=== PATIENT | female | born 1930 | race Caucasian/White ===

== ENCOUNTER → 2018-05-06 | Outpatient (CLI) | payer OTHER, MEDICARE ==
[~2018-05-06] VITALS: Ht 160 cm; Wt 65.9 kg
[~2018-05-06] MED LIST: ALENDRONATE; ASPIRIN; ASPIRIN EC81 M1; CALCIUM 600 +1 EAC1 PO; CALTRATE-600 W1 EACH; FISHOIL; GABAPENTIN 100100 MG PO; HYDROCHLOROTH12.5 M1 PO; HYDROCODONE-AP1 EAC6 PO; K-DUR10 ME1; KLOR-CON 10 ER10 MEQ; LISINOPRIL40 MG; LYRICA 50 MG50 MG PO; MAGNESIUM OXID400 MG PO; MEGA RED; MOBIC7.5 MG PO; NORCO 5-325 TA1 EACH PO; NORVASC 5 MG TAB5 MG; PREMARIN0.3 MG; TRAMADOL 50 MG50 MG PO; TRAMADOL-ACETA1 EACH; TRAMADOL-ACETA1 EACH PO; TRIAMTERENE-HC1 EAC1; TURMERIC500 M2 PO; VALIUM5 MG PO; VITAMIN D1000 UNI1; VITAMIN D22000 UNIT; [UNRECOGNIZED DRUG - OTHER]
--- NOTE | ~2018-05-06 | HPC ---
[facility] [address] [place] [address] PAIN MANAGEMENT CONSULTATION Name: SUHA CONTI Room #: REG EARL Null.#: [id number] Admission: 05/06/18 ������������������ Attend Phys: Silvio Magaña MD Discharge: ������������������ Date of : 31 Report #: [id number] THIS REPORT FOR: //name// CC: Panda Magaña DATE OF SERVICE: 05/06/2018 REASON FOR VISIT: Followup visit for now chronic left anterior thigh pain. HISTORY OF PRESENT ILLNESS: I last saw my friend, the patient, for this condition in October. 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 This has been treated at the Pain Clinic at and she has had epidural injections, even a trial of spinal cord stimulation without success. She was treated fairly successfully with Lyrica for neuropathic pain; however, the cost was prohibitive. I find in October of last year that we truly have an unbalanced health care system that would approve and pay for a spinal cord stimulator and DRG stimulation that costs 10,000 of dollars but would not pay for the successful use of a medication such as Lyrica. It still leaves me scratching my head on that. She has retried gabapentin and other anti-seizure type medications with limited success. She uses tramadol and Meloxicam as an alternative yet her pain score with these medications can be as high as a 7/10. Pain once again is consistent with a femoral distribution from her hip radiating through the anterior thigh to her knee but no further. PQRS review shows a pleasant female with a history of diffuse osteoarthritis including replacement of left hip. She is a fall risk, but has not fallen in the last 3 months. She is on no blood thinners. She is under treatment for hypertension by Dr. Maynard, taking hydrochlorothiazide. She is also on amlodipine. All medications reviewed and reconciled and are noted on the electronic medical record. She is not on an opioid medication, has not signed an opioid agreement. She is at low risk by the ORT and if she desires, she is to use these medications. She does not smoke, occasionally enjoys an alcoholic beverage. PHYSICAL EXAMINATION: VITAL SIGNS: Blood pressure is 117/73, heart rate 95 and respirations 16. She has BMI of 25.7. MUSCULOSKELETAL: She moves from sitting to standing position. Her gait is antalgic. She has good range of motion of the hip. She has discomfort and tenderness throughout the femoral nerve distribution. There is no allodynia. She has good strength below the knee with no weakness in plantar or dorsiflexion. Deep tendon reflexes are bilaterally trace at knees and ankles. [address] [address] PAIN MANAGEMENT CONSULTATION Name: SUHA CONTI Asher Room #: REG EARL Cole#: [id number] Admission: 05/06/18 ������������������ Attend Phys: Silvio Magaña MD Discharge: ������������������ Date of : 31 Report #: [id number] IMPRESSION: 1. Femoral neuropathy. 2. Chronic back pain with radiculopathy. 3. Hypertension. RECOMMENDATIONS: 1. We may see if we can pursue help from the drug companies in providing her with Lyrica at a lower cost. My opinion as noted above. 2. Cortisone injection of the area surrounding the femoral nerve. I would not use local anesthetic due to the risk of weakness. 3. Follow up as needed. I also allow the patient to ride a stationary bike if she can do this carefully with supervision. PROCEDURE: Femoral nerve block. Skin was anesthetized with a 1% lidocaine and a 22-gauge Tuohy epidural needle utilized for its soft and rounded tip, was advanced just lateral to the femoral artery. After negative aspiration, I gently injected 40 mg of triamcinolone mixed with 3 mL of normal saline to enhance spread along the nerve root. A slight paresthesia was identified prior to injection. There was no resistance to injection. She tolerated the procedure well and was observed for short time and discharged. Followup visit planned by phone. ��������������������������������������������� ���������������������������������������� By: ��������������������������������������������� [id number] Silvio Magaña MD /nt
[2018-05-06 10:52] VITALS: BP 117/73
--- NOTE | 2018-05-06 11:05 | NUR ---
Pain Clinic Assessment: 1. History of Osteoarthritis: History of Rheumatoid Arthritis: 2. Height: 5 ft. 3 in. 160.0 cm. Weight: 145.2 lb. oz. 65.862 kg. Patient's BMI: 25.7 3. Vital Signs: BP: 117/73 Pulse: 95 Resp: 16 Temp: 02 Sat: 95 ECG Mon: 4. Pain Intensity: 0-7AVG 5. Fall Risk: Dizziness: N Needs help standing or walking: Y Fallen in the last 3 months: N Fall risk comments: 6. Patient on Blood Thinner: None 7. History of Hypertension: Y 8. Opioid Therapy greater than 6 weeks: N Opiate Contract Signed: 9. Risk Assessment Tool Provided: LOW 10. Functional Assessment Tool: 11. Recreational Drug Use: Never Drug Type: Tobacco Use: Former Smoker Tobacco Type: Amount or Packs/day: How Many Years: Alcohol Use: Yes Frequency: Quant:
== END | disposition home or self-care (01) ==
LOC: PAIN 02-25 08:00
DX: G57.22 Lesion of femoral nerve, left lower limb (principal); G89.29 Other chronic pain; I10 Essential (primary) hypertension; Z96.642 Presence of left artificial hip joint; Z87.891 Personal history of nicotine dependence; Z98.890 Other specified postprocedural states; Z79.899 Other long term (current) drug therapy

== ENCOUNTER → 2018-06-03 | Outpatient (CLI) | payer OTHER, MEDICARE ==
[~2018-06-03] VITALS: Ht 162.6 cm; Wt 62.1 kg
[2018-06-03 10:11] VITALS: BP 122/81
== END ==
LOC: PAIN 06:57
DX: M17.12 Unilateral primary osteoarthritis, left knee (principal)

== ENCOUNTER → 2018-07-26 | Outpatient (CLI) | payer OTHER, MEDICARE ==
[~2018-07-26] VITALS: Ht 162.6 cm; Wt 65.0 kg
--- NOTE | ~2018-07-26 | HPC ---
[facility] [address] [address] PAIN MANAGEMENT CONSULTATION Name: SUHA CONTI Room #: REG EARL MLubna.#: [id number] Admission: 07/26/18 ������������������ Attend Phys: Silvio Magaña MD Discharge: ������������������ Date of : 31 Report #: [id number] THIS REPORT FOR: //name// CC: LEO Magaña DATE OF SERVICE: 07/26/2018 Followup visit for chronic left groin pain, low back pain and bilateral osteoarthritis. My friend, the patient, is here today reporting that she is doing fairly well. She is grateful for the great pain relief that she got with the injection in the left femoral region following her stent placement. That continues to do well and is holding now about 2 months out from the injection. She has severe pain in the knees and injections previously were not helpful. We discussed strategies for managing her knee pain. Her followup visit was about 10-15 minutes today as we discussed long-term strategies to manage osteoarthritis. Followup visit is planned as needed. ��������������������������������������������� ���������������������������������������� By: ��������������������������������������������� 1737 [id number] Silvio Magaña MD /nt
[2018-07-26 13:01] VITALS: BP 134/78
--- NOTE | 2018-07-26 13:19 | NUR ---
Pain Clinic Assessment: 1. History of Osteoarthritis: B/L HANDS B/L SHOULDERS B/L KNEES RIGHT ANKLE History of Rheumatoid Arthritis: NONE 2. Height: 5 ft. 4 in. 162.6 cm. Weight: 143.2 lb. oz. 64.955 kg. Patient's BMI: 24.6 3. Vital Signs: BP: 134/78 Pulse: 84 Resp: 16 Temp: 02 Sat: 100 ECG Mon: 4. Pain Intensity: 0 5. Fall Risk: Dizziness: N Needs help standing or walking: Y Fallen in the last 3 months: N Fall risk comments: 6. Patient on Blood Thinner: None 7. History of Hypertension: Y 8. Opioid Therapy greater than 6 weeks: N Opiate Contract Signed: 9. Risk Assessment Tool Provided: LOW 10. Functional Assessment Tool: 11. Recreational Drug Use: Never Drug Type: Tobacco Use: Former Smoker Tobacco Type: Amount or Packs/day: How Many Years: Alcohol Use: Yes Frequency: Weekly Quant: 2-3
== END ==
LOC: PAIN 07-01 06:53
DX: G89.29 Other chronic pain (principal); M54.5 Low back pain; M17.0 Bilateral primary osteoarthritis of knee; R10.9 Unspecified abdominal pain

== ENCOUNTER → 2018-08-30 | Outpatient (CLI) | payer OTHER, MEDICARE ==
[~2018-08-30] VITALS: Ht 160 cm; Wt 64.9 kg
[2018-08-30 14:01] VITALS: BP 127/74
--- NOTE | 2018-08-30 14:08 | NUR ---
Pain Clinic Assessment: 1. History of Osteoarthritis: B/L HANDS B/L SHOULDERS B/L KNEES RIGHT ANKLE History of Rheumatoid Arthritis: NONE 2. Height: 5 ft. 3 in. 160.0 cm. Weight: 143.0 lb. oz. 64.864 kg. Patient's BMI: 25.3 3. Vital Signs: BP: 127/74 Pulse: 85 Resp: 16 Temp: 02 Sat: 96 ECG Mon: 4. Pain Intensity: 6 5. Fall Risk: Dizziness: N Needs help standing or walking: N Fallen in the last 3 months: N Fall risk comments: 6. Patient on Blood Thinner: None 7. History of Hypertension: Y 8. Opioid Therapy greater than 6 weeks: N Opiate Contract Signed: 9. Risk Assessment Tool Provided: RAY 10. Functional Assessment Tool: 11. Recreational Drug Use: Never Drug Type: Tobacco Use: Former Smoker Tobacco Type: Amount or Packs/day: How Many Years: Alcohol Use: Yes Frequency: Quant:
--- NOTE | 2018-09-07 17:25 | HPC ---
[facility] [address] [address] PAIN MANAGEMENT CONSULTATION Name: SUHA CONTI Room #: REG EARL MLubna.#: [id number] Admission: 08/30/18 ������������������ Attend Phys: Silvio Magaña MD Discharge: ������������������ Date of : 31 Report #: [id number] THIS REPORT FOR: //name// CC: LEO Magaña DATE OF SERVICE: 08/30/2018 Followup visit for femoral neuropathy. The patient was seen in the pain clinic in March and I performed a cortisone injection with saline around the femoral nerve. This was extremely helpful. She returns to the pain clinic today for repeat injection. Last injection was performed blindly. I told her today that I would perform the injection using fluoroscopic guidance, so I could see position of the dye in relationship to the femoral artery, looking also for pulsation to suggest proximity on the lateral aspect. She complains today of pain once again in the anterior thigh following the femoral nerve distribution. PQRS REVIEW: The patient is a pleasant 88-year-old. 1. Diffuse history of osteoarthritis involving hands, shoulders, knees and ankles. 2. 5 feet 3 inches, 143 pounds, 25.3 BMI. 3. Vital Signs: Blood pressure 127/74, heart rate 85, respirations 16, O2 sat 96. 4. Pain intensity 6/10. 5. She has not fallen in the last 3 months and is not considered a fall risk. 6. She is on no blood thinners. 7. She is treated for hypertension. All medications were reviewed and reconciled. She currently is taking lisinopril in addition to her pain medications, gabapentin, tramadol, meloxicam and aspirin. She is not on opioid agreement. She is considered at low risk for addiction at any rate and her functional assessment tool is 3/70. She denies use of tobacco, but enjoys alcohol in a social setting. Examination of the lower extremity reveals pain and tenderness radiating into the anterior thigh, in the femoral nerve distribution. IMPRESSION: Femoral neuropathy. RECOMMENDATIONS: Femoral nerve block. I will do this under fluoroscopic [facility] [address] [place] [address] PAIN MANAGEMENT CONSULTATION Name: SUHA CONTI Room #: REG EARL Cole#: [id number] Admission: 08/30/18 ������������������ Attend Phys: Silvio Magaña MD Discharge: ������������������ Date of : 31 Report #: [id number] guidance today. After informed consent, she was taken to the fluoroscopic suite. She was placed prone. Skin prepped with ChloraPrep. Skin was anesthetized just lateral to the left femoral artery. A 22-gauge Tuohy epidural needle was advanced to an area of slight paresthesia. This quickly abated. After negative aspiration, I injected 0.5 mL of Omnipaque. Spread of dye was seen lateral to the artery with some slight pulsation. This was then followed by 3 mL of 0.9% saline mixed with 40 mg of triamcinolone. She tolerated the procedure well. She was taken to recovery room and was observed for a short time before discharge. There were no complications. Followup visit planned as needed. ��������������������������������������������� <ELECTRONICALLY SIGNED> ���������������������������������������� By: Silvio Magaña MD ��������������������������������������������� 09/07/18 1725 1602 52 Silvio Magaña MD /nt
== END | disposition home or self-care (01) ==
LOC: PAIN 06:54
DX: G57.22 Lesion of femoral nerve, left lower limb (principal); G89.29 Other chronic pain; M19.90 Unspecified osteoarthritis, unspecified site; Z79.899 Other long term (current) drug therapy; Z79.82 Long term (current) use of aspirin; Z98.890 Other specified postprocedural states; Z87.891 Personal history of nicotine dependence; Z88.0 Allergy status to penicillin; Z88.8 Allergy status to other drugs, medicaments and biological substances

== ENCOUNTER → 2018-10-14 | Outpatient (CLI) | payer OTHER, MEDICARE ==
[~2018-10-14] VITALS: Ht 162.6 cm; Wt 63.5 kg
[2018-10-14 15:04] VITALS: BP 122/70
--- NOTE | 2018-10-14 15:08 | NUR ---
Pain Clinic Assessment: 1. History of Osteoarthritis: B/L HANDS B/L SHOULDERS B/L KNEES RIGHT ANKLE History of Rheumatoid Arthritis: NONE 2. Height: 5 ft. 4 in. 162.6 cm. Weight: 140.0 lb. oz. 63.504 kg. Patient's BMI: 24.0 3. Vital Signs: BP: 122/70 Pulse: 82 Resp: 16 Temp: 02 Sat: 97 ECG Mon: 4. Pain Intensity: 8 5. Fall Risk: Dizziness: N Needs help standing or walking: N Fallen in the last 3 months: N Fall risk comments: 6. Patient on Blood Thinner: None 7. History of Hypertension: Y 8. Opioid Therapy greater than 6 weeks: N Opiate Contract Signed: 9. Risk Assessment Tool Provided: RAY 10. Functional Assessment Tool: 11. Recreational Drug Use: Never Drug Type: Tobacco Use: Former Smoker Tobacco Type: Amount or Packs/day: How Many Years: Alcohol Use: Yes Frequency: Quant:
--- NOTE | 2018-10-21 16:33 | HPC ---
[facility] [place] [address] PAIN MANAGEMENT CONSULTATION Name: SUHA CONTI Room #: REG EARL Tenn[place].#: [id number] Admission: 10/14/18 Attend Phys: Silvio Magaña MD Discharge: Date of : 31 Report #: [id number] THIS REPORT FOR: //name// CC: LEO Magaña DATE OF SERVICE: 10/14/2018 CHIEF COMPLAINT: Femoral neuropathy. The patient returns to pain clinic today for a femoral nerve injection with triamcinolone. The record will reflect that she has responded very favorably to this injection in the past providing her nearly 3 months of pain relief on her first injection. Unfortunately, the second injection was not quite as helpful in regards to duration. I have agreed to repeat the injection for her today. There is nothing else we can offer for her other than the medication, which we are trying to avoid in this 88 year old. PQRS: 1. History of diffuse bilateral osteoarthritis of hands, shoulders, knees and ankle. 2. BMI of 24. 3. Blood pressure 120/70, heart rate 82, respirations 16, O2 sat 97. 4. Pain intensity in the left leg, 8/10. 5. She is a fall risk and needs a walker, although she has been stable and has not fallen in the last 3 months. 6. No blood thinners 7. History of hypertension, currently treated by Dr. Medina. I have reviewed all medications on her list including hydrochlorothiazide, meloxicam, gabapentin, tramadol, and aspirin. She also takes lisinopril for blood pressure and potassium. 8. She is on no opioid medication. 9. She has completed an opioid risk tool and is considered at low risk. 10. Functional assessment tool is 370. She manages pain very well. 11. She denies use of tobacco, drinks alcohol with friends in a social setting. PHYSICAL EXAMINATION: VITAL SIGNS: As above. MUSCULOSKELETAL: Reveals an antalgic gait, walking with a walker. She is fairly stable on her feet, but needs the walker certainly because of slight kyphosis. Tenderness across the lumbosacral segment. Examination of the left leg reveals pain overlying her left groin. The pain radiating is along the left femoral nerve and the anterior thigh. EMG is confirmed evidence of femoral neuropathy, which was a complication [address] [address] PAIN MANAGEMENT CONSULTATION Name: SUHA CONTI Asher Room #: REG EARL Cole#: [id number] Admission: 10/14/18 Attend Phys: Silvio Magaña MD Discharge: Date of : 31 Report #: [id number] following a hip surgical procedure. PROCEDURE: Femoral nerve block. She was taken to the treatment room and placed in the supine position. Skin was prepped overlying the left groin. Skin was anesthetized with 1% lidocaine and a 22-gauge Tuohy epidural needle was used for its rounded tip and atraumatic profile, was advanced just lateral to the left femoral artery until a paresthesia was achieved in the distribution of her pain. After negative aspiration, I gently injected a total of 3 mL of normal saline mixed with 40 mg of triamcinolone. She tolerated the procedure well and was walking better, reporting a substantial reduction in pain before discharge. FOLLOWUP: As needed. <ELECTRONICALLY SIGNED> By: Silvio Magaña MD 10/21/18 1633 1656 0018 Silvio Magaña MD /nt
== END | disposition home or self-care (01) ==
LOC: PAIN 07:05
DX: G57.22 Lesion of femoral nerve, left lower limb (principal); I10 Essential (primary) hypertension; M19.90 Unspecified osteoarthritis, unspecified site; Z79.899 Other long term (current) drug therapy; Z87.891 Personal history of nicotine dependence; Z88.0 Allergy status to penicillin; Z88.8 Allergy status to other drugs, medicaments and biological substances; Z79.82 Long term (current) use of aspirin

== ENCOUNTER → 2018-11-11 | Outpatient (CLI) | payer OTHER, MEDICARE ==
[~2018-11-11] VITALS: Ht 162.6 cm; Wt 59.9 kg
--- NOTE | ~2018-11-11 | HPC ---
[facility] [address] [address] PAIN MANAGEMENT CONSULTATION Name: SUHA CONTI Room #: REG EARL Tennille.#: [id number] Admission: 11/11/18 Attend Phys: Silvio Magaña MD Discharge: Date of : 31 Report #: [id number] THIS REPORT FOR: //name// CC: LEO Magaña Jaime Leejessica DATE OF SERVICE: 11/11/2018 The patient returns to pain clinic today for a 15-minute consult visit. She continues to complain of pain into the left leg. I had given her injections around that femoral nerve, which has been painful ever since her hip surgery. On one occasion, she had sustained pain relief for many months. The other two occasions, pain relief has been present, but the duration of response has been short. She also has fairly significant spinal stenosis and degenerative changes consistent with age. She has received epidural injections in the past for lumbar radiculopathy. We entertained that diagnosis as well today. PQRS REVIEW: 1. Significant osteoarthritis involving multiple joints of the hands, bilateral shoulders, knees and right ankle. 2. BMI is 22.6. 3. Vital signs: Blood pressure 91/63, heart rate 76, respirations 14. 4. Pain intensity 5/10. 5. Not a fall risk, although she does need help standing and walking. 6. She is on no blood thinners. 7. History of hypertension, under treatment. All medications reviewed and reconciled. 8. Opioid therapy: None at this time. 9. Risk assessment score is low for addiction. 10. Functional assessment score 3/70. The patient is amazing. She does not complain. 11. She denies use of tobacco, but enjoys alcohol in a social setting on several occasions per week. PHYSICAL EXAMINATION: VITAL SIGNS: As noted above. GENERAL: She is pleasant, alert and oriented. Shows no signs of senility or dementia. She is a karo female. HEENT: Pupils are equal, round, reactive to light. EOMs are intact. Mucous membranes moist. 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 No thyromegaly. [facility] [address] [place] [address] PAIN MANAGEMENT CONSULTATION Name: SUHA CONTI Room #: REG [facility]#: [id number] Admission: 11/11/18 Attend Phys: Silvio Magaña MD Discharge: Date of : 31 Report #: [id number] CHEST: Clear. CARDIAC: Rhythm is regular. MUSCULOSKELETAL: Examination of the low back reveals tenderness across the lumbosacral segment. Straight leg raising reproduces pain in the anterior thigh, but this could well be from the femoral neuropathy. She has pain with internal and external rotation. IMPRESSION: 1. Femoral neuropathy. 2. Lumbar radiculopathy, possibly left L3-L4 distribution. A distant MRI has been reviewed, which shows that she has several levels of anterolisthesis and narrowing at L4-5 and L5-S1. There is left neural foraminal stenosis at L3-L4. PLAN: 1. I have initiated low dose gabapentin therapy with titration from 100 mg b.i.d. to 900 mg per day. 2. Consider epidural steroid injection under fluoroscopic guidance if not improved in 1-2 weeks. We will seek preauthorization. Discussed at some length the side effects of the medication. She will carefully utilize gabapentin watching for dizziness and the potential for fall risk. By: [id number] Silvio Magaña MD /nt
[2018-11-11 10:57] VITALS: BP 91/63
--- NOTE | 2018-11-11 11:08 | NUR ---
Pain Clinic Assessment: 1. History of Osteoarthritis: B/L HANDS B/L SHOULDERS B/L KNEES RIGHT ANKLE History of Rheumatoid Arthritis: NONE 2. Height: 5 ft. 4 in. 162.6 cm. Weight: 132.0 lb. oz. 59.875 kg. Patient's BMI: 22.6 3. Vital Signs: BP: 91/63 Pulse: 76 Resp: 14 Temp: 02 Sat: 100 ECG Mon: 4. Pain Intensity: 5-NOW 5. Fall Risk: Dizziness: N Needs help standing or walking: Y Fallen in the last 3 months: N Fall risk comments: 6. Patient on Blood Thinner: None 7. History of Hypertension: Y 8. Opioid Therapy greater than 6 weeks: N Opiate Contract Signed: 9. Risk Assessment Tool Provided: LOW 10. Functional Assessment Tool: 11. Recreational Drug Use: Never Drug Type: Tobacco Use: Former Smoker Tobacco Type: Amount or Packs/day: How Many Years: Alcohol Use: Yes Frequency: Quant:
== END ==
LOC: PAIN 09-23 14:08
DX: M54.16 Radiculopathy, lumbar region (principal); M48.061 Spinal stenosis, lumbar region without neurogenic claudication; M43.16 Spondylolisthesis, lumbar region

== ENCOUNTER → 2018-12-09 | Outpatient (CLI) | payer OTHER, MEDICARE ==
[~2018-12-09] VITALS: Ht 160 cm; Wt 62.6 kg
[2018-12-09 13:02] VITALS: BP 103/73
--- NOTE | 2018-12-09 13:06 | NUR ---
Pain Clinic Assessment: 1. History of Osteoarthritis: B/L HANDS B/L SHOULDERS B/L KNEES RIGHT ANKLE History of Rheumatoid Arthritis: NONE 2. Height: 5 ft. 3 in. 160.0 cm. Weight: 138.0 lb. oz. 62.596 kg. Patient's BMI: 24.5 3. Vital Signs: BP: 103/73 Pulse: 79 Resp: 16 Temp: 02 Sat: 99 ECG Mon: 4. Pain Intensity: 5 5. Fall Risk: Dizziness: N Needs help standing or walking: N Fallen in the last 3 months: Y Fall risk comments: 6. Patient on Blood Thinner: None 7. History of Hypertension: Y 8. Opioid Therapy greater than 6 weeks: N Opiate Contract Signed: 9. Risk Assessment Tool Provided: LOW-0 10. Functional Assessment Tool: 11. Recreational Drug Use: Never Drug Type: Tobacco Use: Former Smoker Tobacco Type: Amount or Packs/day: How Many Years: Alcohol Use: Yes Frequency: Quant:
--- NOTE | 2018-12-16 16:52 | HPC ---
[facility] [address] PAIN MANAGEMENT CONSULTATION Name: SUHA CONTI Room #: REG EARL MLubna.#: [id number] Admission: 12/09/18 Attend Phys: Silvio Magaña MD Discharge: Date of : 31 Report #: [id number] THIS REPORT FOR: //name// CC: Panda Magaña DATE OF SERVICE: 12/09/2018 The patient returns to pain clinic today for a quick visit. She was in clinic for only about 10-15 minutes. She is doing okay with the gabapentin 100 mg 2 tablets in the morning, 2 tablets at noon and one at bedtime. She denies side effects. I have agreed to continue providing it for her. She is not using an opioid at this time. She says that the pain in her leg is persistent down to about a 5/10. She still has pain in her hands and has an appointment to see Dr. Hancock for injection of her hands within the next week. She is still having her leg give out some due to weakness. PQRS REVIEW: 1. Diffuse osteoarthritis, particularly bothersome in the hands. 2. BMI 24.3. 3. Blood pressure 103/73, heart rate 79, respirations 16. 4. Pain intensity 5/10. 5. She is a fall risk due to the weakness in her left leg from her femoral neuropathy. 6. She is on no blood thinners. 7. Hypertension is under treatment by Dr. Maynard. 8. No opioid agreement and she is at low risk for addiction. 9. She denies use of tobacco, drinks alcohol socially. IMPRESSION: 1. Diffuse osteoarthritis. 2. Femoral neuropathy. 3. Lumbar radiculopathy. Consider epidural injection. 4. Management of medication, currently on gabapentin. Followup visit as needed. Epidural injection may be considered in the future. <ELECTRONICALLY SIGNED> By: Silvio Magaña MD 12/16/18 1652 [id number] [id number] Silvio Magaña MD /nt
== END ==
LOC: PAIN 06:55
DX: G57.20 Lesion of femoral nerve, unspecified lower limb (principal); M19.90 Unspecified osteoarthritis, unspecified site

== ENCOUNTER → 2020-08-13 | Outpatient (CLI) | payer OTHER ==
[2020-08-13 09:52] LABS: ABSOLUTE NEUTROPHILS 3.5 thou/uL (1.4-8.2); BASOPHILS 0.6 % (0.0-2.0); EOSINOPHILS 1.5 % (0.0-3.0); HEMATOCRIT 37.4 % (37.0-47.0); HEMOGLOBIN 12.7 gm/dL (12.0-15.0); LYMPHOCYTES 20.8 % (24.0-44.0); MCH 32.6 pg (26.0-34.0); MCV 95.8 fL (80.0-100.0); MONOCYTES 7.9 % (1.0-8.0); PLATELET COUNT 353 thou/uL (150-400); POLYS 69.2 % (36.0-66.0); RDW 13.9 % (10.5-14.5); WBC 5.1 thou/uL (4.0-11.0)
[2020-08-13 10:11] LABS: ALBUMIN 4.2 g/dL (3.4-5.0); CALCIUM 10.3 mg/dL (8.5-10.1); CREATININE 0.8 mg/dL (0.6-1.0); POTASSIUM 4.1 mmol/L (3.5-5.1); TOTAL BILIRUBIN 0.4 mg/dL (0.2-1.0); TOTAL PROTEIN 7.2 g/dL (6.4-8.2)
[2020-08-13 19:07] LABS: IgA 99 mg/dL (64-422); IgG 626 mg/dL (586-1602); IgM 115 mg/dL (26-217)
== END ==
LOC: LAB 08:26
PROVIDERS: ATTEND Psychiatry & Neurology Neuromuscular Medicine
DX: G81.94 Hemiplegia, unspecified affecting left nondominant side (principal); G95.9 Disease of spinal cord, unspecified; R29.898 Other symptoms and signs involving the musculoskeletal system